=== PATIENT | male | born 1965 ===

== ENCOUNTER 2021-03-21 08:54 | Inpatient (IN) ==
[2021-03-21] MEDS ORDERED: Heparin DRIP 25,000 UNITS BAG 25,000 UNITS/500 ML BAG IV SCH (12:45)
[2021-03-21] MEDS ORDERED: Heparin 5000 UNITS/ML 1 mL VIAL IV SCH ×2 (13:00→20:00)
[2021-03-21] MEDS: D5W 1/2 NS KCl 20 meq 1000 ml 1,000 ML IV SCH (15:32)
[2021-03-21] MEDS: levETIRAcetam 1000MG IVPREMIX 1,000 MG/100 ML BAG IVPB SCH (20:40)
[2021-03-21] MEDS ORDERED: Amoxicillin/Clavulan ORALSYR 80 MG/ML (400 MG/5 ML) NG TUBE SCH (21:00)
[2021-03-21] MEDS ORDERED: Amoxicillin/Clavulan ORALSYR 80 MG/ML (400 MG/5 ML) PO SCH (21:00)
[2021-03-22] MEDS: Ondansetron 4 mg VIAL 2 MG/ML 2 ml VIAL IV PRN ×2 (01:41→08:50)
[2021-03-22 03:07] LABS: ABS Basophils 0.1 10^3/ul (0-0.2); ABS Lymphocytes 0.9 10^3/ul (1.0-4.8); ABS Monocytes 1.1 10^3/ul (0-0.8); ABS Neutrophils 15.6 10^3/ul (1.5-7.7); Eosinophil % 0.2 %; Hematocrit 46 % (42-52); Hemoglobin 15.1 g/dL (14.0-18.0); Mean Corpuscular HGB Conc 33 g/dL (31-36); Mean Corpuscular Hemoglobin 28 pg (27-31); Mean Corpuscular Volume 85 fL (80-94); Mean Platelet Volume 7.7 fL (7.4-10.4); Platelet Count 201 10^3/uL (150-450); Red Blood Count 5.41 10^6 /uL (4.18-5.48); Red Cell Distribution Width 15 % (10-15); White Blood Count 17.7 10^3/uL (3.5-10.8)
[2021-03-22] MEDS ORDERED: Piperacillin/Tazobac ADVAN 3.375 GM in NS 0.9% 100 ml BAG 100 ML IV ONE (03:38)
[2021-03-22] MEDS ORDERED: Zosyn per Pharmacy NOTE FOLLOW UP SCH (04:00)
[2021-03-22 04:24] LABS: Potassium 3.9 mmol/L (3.5-5.0)
[2021-03-22 04:25] LABS: Calcium 8.9 mg/dL (8.6-10.3); EGFR African American 130.8 (>60); EGFR Non-African American 108.1 (>60)
[2021-03-22] MEDS: Pantoprazole VIAL 40 MG VIAL IV SCH (07:12)
[2021-03-22] MEDS: levETIRAcetam 1000MG IVPREMIX 1,000 MG/100 ML BAG IVPB SCH ×2 (07:12→21:45)
[2021-03-22] MEDS: ZOSYN 3.375 GM Q8H per EXTENDED INFUSION IV SCH ×2 (07:12→17:04)
[2021-03-22] MEDS: D5W 1/2 NS KCl 20 meq 1000 ml 1,000 ML IV SCH (08:41)
[2021-03-22 09:10] LABS: Phosphorus 3.9 mg/dL (2.5-5.0)
[2021-03-22] MEDS: Dextran 70/Hypromellose Tears Eye Drops 15 ml BTL (for Artificials Tears) BOTH EYES PRN (09:23)
[2021-03-22 13:25] LABS: INR 1.43 (0.82-1.09)
[2021-03-22] MEDS ORDERED: Lactated Ringers 1000 ml BAG 1,000 ML IV SCH (14:00)
[2021-03-22] MEDS ORDERED: Bupivacaine 0.5% SDV PF 30ML VIAL ONE (14:19)
[2021-03-22] MEDS ORDERED: Midazolam 2 mg/2 ml VIAL 1 mg/ml 2 ml VIAL (2 mg) ONE (14:30)
[2021-03-22] MEDS ORDERED: fentaNYL 100 mcg/2 ml 50 MCG/ML VIAL ONE (14:30)
[2021-03-22] MEDS: Dexamethasone IV 4 MG/ML VIAL 1 ml VIAL IV SLOW PU SCH (21:45)
[2021-03-23] MEDS: D5W 1/2 NS KCl 20 meq 1000 ml 1,000 ML IV SCH (00:52)
[2021-03-23] MEDS: ZOSYN 3.375 GM Q8H per EXTENDED INFUSION IV SCH ×4 (00:53→23:43)
[2021-03-23 04:28] LABS: Hematocrit 44 % (42-52); Hemoglobin 14.4 g/dL (14.0-18.0); Mean Corpuscular HGB Conc 33 g/dL (31-36); Mean Corpuscular Hemoglobin 28 pg (27-31); Mean Corpuscular Volume 85 fL (80-94); Mean Platelet Volume 7.6 fL (7.4-10.4); Platelet Count 185 10^3/uL (150-450); Red Blood Count 5.12 10^6 /uL (4.18-5.48); Red Cell Distribution Width 14 % (10-15); White Blood Count 13.8 10^3/uL (3.5-10.8)
[2021-03-23 04:48] LABS: Calcium 8.6 mg/dL (8.6-10.3); EGFR African American 111.7 (>60); EGFR Non-African American 92.3 (>60); Phosphorus 3.5 mg/dL (2.5-5.0); Potassium 4.3 mmol/L (3.5-5.0)
[2021-03-23] MEDS: Pantoprazole VIAL 40 MG VIAL IV SCH (07:38)
[2021-03-23] MEDS: Dextran 70/Hypromellose Tears Eye Drops 15 ml BTL (for Artificials Tears) BOTH EYES PRN ×2 (08:35→14:41)
[2021-03-23] MEDS: levETIRAcetam 1000MG IVPREMIX 1,000 MG/100 ML BAG IVPB SCH ×2 (08:35→21:17)
[2021-03-23] MEDS: Dexamethasone IV 4 MG/ML VIAL 1 ml VIAL IV SLOW PU SCH ×2 (08:35→21:17)
[2021-03-23] MEDS: Ondansetron 4 mg VIAL 2 MG/ML 2 ml VIAL IV PRN (16:40)
[2021-03-24] MEDS: levETIRAcetam 1000MG IVPREMIX 1,000 MG/100 ML BAG IVPB SCH ×2 (08:13→19:48)
[2021-03-24] MEDS: Pantoprazole VIAL 40 MG VIAL IV SCH (08:13)
[2021-03-24] MEDS: Dexamethasone IV 4 MG/ML VIAL 1 ml VIAL IV SLOW PU SCH ×2 (08:14→19:49)
[2021-03-24] MEDS: ZOSYN 3.375 GM Q8H per EXTENDED INFUSION IV SCH ×2 (08:26→16:50)
[2021-03-25] MEDS: ZOSYN 3.375 GM Q8H per EXTENDED INFUSION IV SCH ×3 (00:02→17:54)
[2021-03-25] MEDS: levETIRAcetam 1000MG IVPREMIX 1,000 MG/100 ML BAG IVPB SCH ×2 (10:21→21:43)
[2021-03-25] MEDS: Pantoprazole VIAL 40 MG VIAL IV SCH (10:21)
[2021-03-25] MEDS: Dexamethasone IV 4 MG/ML VIAL 1 ml VIAL IV SLOW PU SCH ×2 (10:21→21:43)
[2021-03-25] MEDS ORDERED: Albuterol/Ipratropium NEB.SOL (2.5/0.5 MG) 3 ML NEB.SOLN INH PRN (14:55)
[2021-03-25] MEDS ORDERED: Propofol 10 mg/ml 100 ML BTL 100 ML ONE (16:00)
[2021-03-25] MEDS ORDERED: Rocuronium 50 mg VIAL 10 mg/ml 5 ml VIAL (50 mg) ONE ×3 (16:00→16:44)
[2021-03-25] MEDS ORDERED: Etomidate 40 mg/20 ml (2 MG/ML) 20 ml VIAL (40 mg) ONE (16:13)
[2021-03-25] MEDS ORDERED: Propofol 10 MG/ML 20 ML BTL ONE (16:13)
[2021-03-25] MEDS ORDERED: Acetylcysteine INH SOL (RT) 200 MG/ML 4 ML VIAL INH ONE (16:48)
[2021-03-25 19:01] LABS: Urine Appearance Cloudy; Urine Bilirubin Negative (Negative); Urine Blood Negative (Negative); Urine Color Amber; Urine Glucose Negative (Negative); Urine Ketones Negative (Negative); Urine Nitrite Negative (Negative); Urine Protein 2+(100 mg/dL) (Negative); Urine Specific Gravity 1.028 (1.002-1.030); Urine Urobilinogen Negative (Negative)
[2021-03-25 19:07] LABS: Urine Bacteria Absent (Absent); Urine Red Blood Cell Trace(0-2/hpf) (Absent); Urine White Blood Cell Trace(0-5/hpf) (Absent)
[2021-03-25] MEDS ORDERED: Gadoteridol (CONTRAST) 279.3 MG/ML 10 ML IV ONE (21:04)
[2021-03-25] MEDS: Chlorhexidine MOUTHWASH 0.12% 15 ML UDC SWISH SPIT SCH (23:49)
[2021-03-26] MEDS: Propofol 10 mg/ml 100 ML BTL 100 ML IV SCH ×2 (02:09→13:40)
[2021-03-26] MEDS: Chlorhexidine MOUTHWASH 0.12% 15 ML UDC SWISH SPIT SCH ×6 (02:10→20:41)
[2021-03-26] MEDS: Dexamethasone IV 4 MG/ML VIAL 1 ml VIAL IV SLOW PU SCH ×4 (02:13→19:21)
[2021-03-26] MEDS: ZOSYN 3.375 GM Q8H per EXTENDED INFUSION IV SCH ×3 (04:00→19:21)
[2021-03-26 07:06] LABS: ABS Lymphocytes 0.4 10^3/ul (1.0-4.8); ABS Monocytes 0.4 10^3/ul (0-0.8); ABS Neutrophils 8.7 10^3/ul (1.5-7.7); Hematocrit 42 % (42-52); Lymphocyte % 4.3 %; Mean Corpuscular HGB Conc 33 g/dL (31-36); Mean Corpuscular Hemoglobin 28 pg (27-31); Mean Corpuscular Volume 84 fL (80-94); Mean Platelet Volume 8.1 fL (7.4-10.4); Platelet Count 175 10^3/uL (150-450); Red Cell Distribution Width 15 % (10-15); White Blood Count 9.6 10^3/uL (3.5-10.8)
[2021-03-26 07:26] LABS: Calcium 8.6 mg/dL (8.6-10.3); Magnesium 1.9 mg/dL (1.9-2.7); Potassium 4.4 mmol/L (3.5-5.0)
[2021-03-26 07:31] LABS: EGFR Non-African American 78.5 (>60); Phosphorus 3.4 mg/dL (2.5-5.0)
[2021-03-26] MEDS: Pantoprazole VIAL 40 MG VIAL IV SCH (07:57)
[2021-03-26] MEDS: levETIRAcetam 1000MG IVPREMIX 1,000 MG/100 ML BAG IVPB SCH ×2 (09:20→20:52)
[2021-03-27] MEDS: Chlorhexidine MOUTHWASH 0.12% 15 ML UDC SWISH SPIT SCH ×6 (01:17→21:49)
[2021-03-27] MEDS: Dexamethasone IV 4 MG/ML VIAL 1 ml VIAL IV SLOW PU SCH ×4 (01:17→21:49)
[2021-03-27 03:56] LABS: ABS Lymphocytes 0.4 10^3/ul (1.0-4.8); ABS Monocytes 0.7 10^3/ul (0-0.8); ABS Neutrophils 9.1 10^3/ul (1.5-7.7); Hematocrit 41 % (42-52); Hemoglobin 13.5 g/dL (14.0-18.0); Lymphocyte % 4.2 %; Mean Corpuscular HGB Conc 33 g/dL (31-36); Mean Corpuscular Hemoglobin 28 pg (27-31); Mean Corpuscular Volume 85 fL (80-94); Platelet Count 166 10^3/uL (150-450); Red Blood Count 4.87 10^6 /uL (4.18-5.48); Red Cell Distribution Width 15 % (10-15); White Blood Count 10.3 10^3/uL (3.5-10.8)
[2021-03-27] MEDS: ZOSYN 3.375 GM Q8H per EXTENDED INFUSION IV SCH ×3 (04:02→20:09)
[2021-03-27 04:13] LABS: Albumin 3.3 g/dL (3.2-5.2); Albumin/Globulin Ratio 1.3 (1-3); Calcium 8.7 mg/dL (8.6-10.3); EGFR African American 108.8 (>60); EGFR Non-African American 89.9 (>60); Globulin 2.5 g/dL (2-4); Phosphorus 3.1 mg/dL (2.5-5.0); Potassium 4.2 mmol/L (3.5-5.0); Total Bilirubin 0.6 mg/dL (0.2-1.0); Total Protein 5.8 g/dL (6.4-8.9)
[2021-03-27] MEDS: Pantoprazole VIAL 40 MG VIAL IV SCH (08:38)
[2021-03-27] MEDS: levETIRAcetam 1000MG IVPREMIX 1,000 MG/100 ML BAG IVPB SCH ×2 (08:38→21:30)
[2021-03-27] MEDS ORDERED: Propofol 10 MG/ML 20 ML BTL ONE (10:24)
[2021-03-27] MEDS ORDERED: Lidocaine 1% VIAL 10 MG/ML VIAL ONE (10:24)
[2021-03-27] MEDS ORDERED: Lidocaine 1% VIAL 10 MG/ML VIAL INJ ONE (10:36)
[2021-03-27] MEDS: Propofol 10 mg/ml 100 ML BTL 100 ML IV SCH ×2 (12:38→23:48)
[2021-03-28] MEDS: Chlorhexidine MOUTHWASH 0.12% 15 ML UDC SWISH SPIT SCH ×6 (03:21→21:18)
[2021-03-28] MEDS: ZOSYN 3.375 GM Q8H per EXTENDED INFUSION IV SCH ×3 (03:24→19:35)
[2021-03-28 04:53] LABS: ABS Lymphocytes 0.5 10^3/ul (1.0-4.8); ABS Monocytes 0.6 10^3/ul (0-0.8); Hematocrit 40 % (42-52); Hemoglobin 13.2 g/dL (14.0-18.0); Lymphocyte % 4.8 %; Mean Corpuscular HGB Conc 33 g/dL (31-36); Mean Corpuscular Hemoglobin 28 pg (27-31); Mean Corpuscular Volume 85 fL (80-94); Mean Platelet Volume 8.3 fL (7.4-10.4); Platelet Count 159 10^3/uL (150-450); Red Blood Count 4.71 10^6 /uL (4.18-5.48); Red Cell Distribution Width 15 % (10-15); White Blood Count 10.1 10^3/uL (3.5-10.8)
[2021-03-28 05:06] LABS: Calcium 8.2 mg/dL (8.6-10.3); EGFR African American 130.8 (>60); EGFR Non-African American 108.1 (>60); Phosphorus 2.7 mg/dL (2.5-5.0); Potassium 3.8 mmol/L (3.5-5.0)
[2021-03-28] MEDS ORDERED: KCL 20 MEQ/100 ML IVPREMIX 20 MEQ/100 ML BAG IV ONE (05:29)
[2021-03-28] MEDS: Dexamethasone IV 4 MG/ML VIAL 1 ml VIAL IV SLOW PU SCH ×3 (06:44→21:27)
[2021-03-28] MEDS: Pantoprazole VIAL 40 MG VIAL IV SCH (08:57)
[2021-03-28] MEDS: levETIRAcetam 1000MG IVPREMIX 1,000 MG/100 ML BAG IVPB SCH ×2 (08:58→21:12)
[2021-03-28] MEDS: Propofol 10 mg/ml 100 ML BTL 100 ML IV SCH (14:26)
[2021-03-29] MEDS: Propofol 10 mg/ml 100 ML BTL 100 ML IV SCH (00:22)
[2021-03-29] MEDS: Chlorhexidine MOUTHWASH 0.12% 15 ML UDC SWISH SPIT SCH ×3 (02:11→08:53)
[2021-03-29] MEDS: ZOSYN 3.375 GM Q8H per EXTENDED INFUSION IV SCH ×3 (03:31→21:03)
[2021-03-29] MEDS: Dexamethasone IV 4 MG/ML VIAL 1 ml VIAL IV SLOW PU SCH ×2 (05:13→21:22)
[2021-03-29] MEDS: levETIRAcetam 1000MG IVPREMIX 1,000 MG/100 ML BAG IVPB SCH ×2 (07:17→20:17)
[2021-03-29] MEDS: Pantoprazole VIAL 40 MG VIAL IV SCH (07:17)
[2021-03-29] MEDS ORDERED: Dexamethasone IV 4 MG/ML VIAL 1 ml VIAL IV SLOW PU SCH ×2 (08:00→17:00)
[2021-03-29] MEDS: Dextran 70/Hypromellose Tears Eye Drops 15 ml BTL (for Artificials Tears) BOTH EYES PRN (08:53)
[2021-03-29] MEDS ORDERED: Buffered Lidocaine 1% SYRIN 1 ml INTRADERM ONE (09:44)
[2021-03-29 10:03] LABS: ABS Lymphocytes 0.4 10^3/ul (1.0-4.8); ABS Monocytes 0.9 10^3/ul (0-0.8); ABS Neutrophils 8.7 10^3/ul (1.5-7.7); Hematocrit 41 % (42-52); Hemoglobin 13.6 g/dL (14.0-18.0); Lymphocyte % 4.3 %; Mean Corpuscular HGB Conc 33 g/dL (31-36); Mean Corpuscular Hemoglobin 28 pg (27-31); Mean Corpuscular Volume 85 fL (80-94); Platelet Count 157 10^3/uL (150-450); Red Blood Count 4.87 10^6 /uL (4.18-5.48); Red Cell Distribution Width 15 % (10-15); White Blood Count 10.1 10^3/uL (3.5-10.8)
[2021-03-29 10:18] LABS: Albumin 3.4 g/dL (3.2-5.2); Albumin/Globulin Ratio 1.4 (1-3); Calcium 8.5 mg/dL (8.6-10.3); EGFR African American 126.9 (>60); EGFR Non-African American 104.9 (>60); Globulin 2.5 g/dL (2-4); Potassium 4.4 mmol/L (3.5-5.0); Total Bilirubin 0.5 mg/dL (0.2-1.0); Total Protein 5.9 g/dL (6.4-8.9)
[2021-03-29] MEDS: Senna TAB 8.6 mg TAB G TUBE SCH (21:22)
[2021-03-30] MEDS: ZOSYN 3.375 GM Q8H per EXTENDED INFUSION IV SCH ×3 (03:44→19:53)
[2021-03-30] MEDS: Pantoprazole VIAL 40 MG VIAL IV SCH (08:57)
[2021-03-30] MEDS: Dexamethasone IV 4 MG/ML VIAL 1 ml VIAL IV SLOW PU SCH ×2 (08:57→20:04)
[2021-03-30] MEDS: levETIRAcetam 1000MG IVPREMIX 1,000 MG/100 ML BAG IVPB SCH ×2 (08:57→20:04)
[2021-03-30] MEDS: Senna TAB 8.6 mg TAB G TUBE SCH (20:04)
[2021-03-31] MEDS: ZOSYN 3.375 GM Q8H per EXTENDED INFUSION IV SCH ×3 (03:34→21:19)
[2021-03-31] MEDS: Pantoprazole VIAL 40 MG VIAL IV SCH (08:15)
[2021-03-31] MEDS: levETIRAcetam 1000MG IVPREMIX 1,000 MG/100 ML BAG IVPB SCH ×2 (08:15→20:33)
[2021-03-31] MEDS: Dexamethasone IV 4 MG/ML VIAL 1 ml VIAL IV SLOW PU SCH ×2 (08:15→20:34)
[2021-03-31] MEDS: NORMOSOL-R pH 7.4 1000 mL BAG 1,000 ML IV SCH ×2 (11:58→21:22)
[2021-03-31] MEDS: Ondansetron 4 mg VIAL 2 MG/ML 2 ml VIAL IV PRN (15:54)
[2021-03-31] MEDS: Senna TAB 8.6 mg TAB G TUBE SCH (20:33)
[2021-04-01] MEDS: ZOSYN 3.375 GM Q8H per EXTENDED INFUSION IV SCH (04:38)
[2021-04-01 04:56] LABS: ABS Lymphocytes 0.1 10^3/ul (1.0-4.8); ABS Monocytes 0.8 10^3/ul (0-0.8); Hematocrit 39 % (42-52); Hemoglobin 12.8 g/dL (14.0-18.0); Lymphocyte % 1.2 %; Mean Corpuscular HGB Conc 33 g/dL (31-36); Mean Corpuscular Hemoglobin 28 pg (27-31); Mean Corpuscular Volume 85 fL (80-94); Nucleated Red Blood Cells % 0.1; Platelet Count 142 10^3/uL (150-450); Red Blood Count 4.61 10^6 /uL (4.18-5.48); Red Cell Distribution Width 15 % (10-15)
[2021-04-01 05:14] LABS: Calcium 8.4 mg/dL (8.6-10.3); EGFR African American 146.5 (>60); EGFR Non-African American 121.1 (>60); Phosphorus 3.4 mg/dL (2.5-5.0); Potassium 4.7 mmol/L (3.5-5.0)
[2021-04-01] MEDS ORDERED: Vancomycin per Pharmacy 1 EA NOTE FOLLOW UP SCH (09:00)
[2021-04-01] MEDS ORDERED: Vancomycin 1,750 MG in NS 0.9% 500 ml BAG 500 ML IVPB ONE (09:00)
[2021-04-01] MEDS: Dexamethasone IV 4 MG/ML VIAL 1 ml VIAL IV SLOW PU SCH (09:01)
[2021-04-01] MEDS: Pantoprazole VIAL 40 MG VIAL IV SCH (09:01)
[2021-04-01] MEDS: levETIRAcetam 1000MG IVPREMIX 1,000 MG/100 ML BAG IVPB SCH (09:01)
[2021-04-01] MEDS ORDERED: Morphine 10 MG/ML VIAL (1 ml) ONE (17:58)
[2021-04-01] MEDS ORDERED: Morphine 10 MG/ML VIAL (1 ml) IV ONE (17:59)
[2021-04-01] MEDS ORDERED: Vancomycin 1,250 MG in NS 0.9% 250 ml 250 ML IVPB SCH (18:00)
[2021-04-01 18:03] VITALS: BP 164/107
[2021-04-02] MEDS ORDERED: Vancomycin Trough Check NOTE FOLLOW UP ONE (09:30)
== END 2021-04-01 22:20 | disposition expired | DRG 208 ==
LOC: MED 11:25 → ICU 03-22 04:42 → MEDTELE 03-24 17:56 → ICU 03-25 13:03
PROVIDERS: ADMIT Hospitalist; ATTEND Surgery Surgical Critical Care